=== PATIENT | male | born 1990 | race American Indian/Alaskan Native ===

== ENCOUNTER 2019-11-03 11:23 | Emergency (ER) | payer SELFPAY ==
[2019-11-03 11:43] VITALS: BP 118/69
--- NOTE | 2019-11-03 12:58 | Emergency Department Report ---
Chief Complaint: Urogenital-Male Stated Complaint: FOLLOW UP Time Seen by Provider: 11/03/19 12:12 - HPI History of Present Illness: 29-year-old -Italian male stated still having blood in his semen. Patient was seen here on 10/26/2019 for the same complaint and was told to follow-up at a urologist. Patient states that he was seen at [facility] yesterday because of the pain. Patient reports that he never followed up with a urologist. Patient states he is taken ibuprofen is not helping much. Patient is requesting a referral to the urologist again. As he reports he has misplaced his paperwork - Exam Vital Signs: Vital Signs 11/03/19 11:42 Temperature 98.8 F Pulse Rate 83 Respiratory 16 Rate Blood Pressure 118/69 [Right] O2 Sat by Pulse 98 Oximetry Physical Exam: Patient is alert and oriented x3 no acute distress nontoxic in appearance nontoxic in appearance ambulating with a crutch MSE screening note: Focused history and physical exam performed. Due to findings the following was ordered: 29-year-old -Italian male stated still having blood in his semen. Patient was seen here on 10/26/2019 for the same complaint and was told to follow-up at a urologist. Patient states that he was seen at [facility] yesterday because of the pain. Patient reports that he never followed up with a urologist. Patient states he is taken ibuprofen is not helping much. Patient is requesting a referral to the urologist again. As he reports he has misplaced his paperwork ED Disposition for [facility] [place], [place] Disposition: Z-07 MED SCREENING EXAM-LEFT Condition: Stable
== END 2019-11-03 13:30 | disposition left against medical advice (07) ==
LOC: ED 11:23
DX: Z53.21 Procedure and treatment not carried out due to patient leaving prior to being seen by health care provider (principal)

== ENCOUNTER 2020-11-17 22:08 | Emergency (ER) | payer SELFPAY | END 2020-11-17 23:00 | LOC: ED 22:08 | DX: R06.02 Shortness of breath (principal); Z53.21 Procedure and treatment not carried out due to patient leaving prior to being seen by health care provider ==